=== PATIENT | male | born 1985 | race Two or more races ===

== ENCOUNTER 2018-06-24 20:55 | Emergency (ER) | payer BC ==
[~2018-06-24] VITALS: Ht 172.7 cm; Wt 70.5 kg
--- NOTE | 2018-06-24 21:20 | NUR ---
Dr. Lucia at bedside to evaluate pt, using full time staff interpreter.
[2018-06-24 21:46] LABS: BASOPHILS # (AUTO) 0.03 x10^3/uL (0-0.1); BASOPHILS % (AUTO) 1 % (0-1); EOSINOPHILS # (AUTO) 0.06 x10^3/uL (0-0.4); EOSINOPHILS % (AUTO) 1 % (1-7); LYMPHOCYTES # (AUTO) 1.12 x10^3/uL (1-3.4); LYMPHOCYTES % (AUTO) 15 % (22-44); MD NO; MEAN CORPUSCULAR HEMOGLOBIN 30.8 pg (27.5-34.5); MEAN CORPUSCULAR HGB CONC 33.9 g/dL (33.2-36.2); MEAN CORPUSCULAR VOLUME 90.8 fL (81-97); MEAN PLATELET VOLUME 9.5 fL (7.4-10.4); MONOCYTES # (AUTO) 0.36 x10^3/uL (0.2-0.8); MONOCYTES % (AUTO) 5 % (2-9); NEUTROPHILS # (AUTO) 5.78 x10^3/uL (1.8-6.8); NEUTROPHILS % (AUTO) 79 % (42-75); PLATELET COUNT 228 x10^3/uL (130-400); RED BLOOD COUNT 4.75 x10^6/uL (4.38-5.82); RED CELL DISTRIBUTION WIDTH 12.8 % (9.4-14.8)
[2018-06-24 21:58] LABS: ANION GAP 6 mmol/L (5-15); CALCIUM 8.9 mg/dL (8.5-10.1); CHLORIDE 107 mmol/L (98-107); CREATININE 1.12 mg/dL (0.7-1.3)
[2018-06-24 22:02] LABS: TROPONIN I < 0.015 ng/mL (0.000-0.045)
--- NOTE | 2018-06-24 22:17 | NUR ---
Jennifer DUMONT, at bedside to evaluate pt.
--- NOTE | 2018-06-24 22:25 | NUR ---
Dr. Lucia at bedside, with revenue audit clerk, to discuss ED findings and d/c information.
[2018-06-24 22:43] VITALS: BP 126/70
--- NOTE | 2018-06-24 22:44 | NUR ---
Patient/Caregiver given discharge instructions and they have confirmed that they understand the instructions. Patient ambulatory with steady gait.
== END 2018-06-24 22:45 | disposition home or self-care (01) ==
LOC: ED 22:39
DX: R07.89 Other chest pain (principal); R00.2 Palpitations; Z95.0 Presence of cardiac pacemaker
CPT/HCPCS: 36415; 71045; 80048; 82040; 83880; 84484; 85025; 93005; 99284

== ENCOUNTER 2018-07-04 20:51 | Emergency (ER) | payer BC ==
[~2018-07-04] VITALS: Ht 172.7 cm; Wt 59.7 kg
[2018-07-04 20:53] VITALS: BP 126/87
--- NOTE | 2018-07-04 21:05 | NUR ---
L EAR PAIN-ONSET X 2-3 DAYS.
[2018-07-04] MEDS ORDERED: HYDROcodone/APAP 10/325 MG TABLET ONE (21:10)
[2018-07-04] MEDS ORDERED: HYDROcodone/APAP 10/325 MG TABLET PO ONE (21:30)
--- NOTE | 2018-07-04 21:38 | NUR ---
THE [employer] SHUTTLE DRIVER NOT AVAILABLE AT THIS TIME THEY WILL CALL WHEN AVAILABLE
--- NOTE | 2018-07-04 22:05 | NUR ---
LABEL CUTTER ON VIDEO MD AT BEDSIDE
--- NOTE | 2018-07-04 22:27 | NUR ---
Patient/Caregiver given discharge instructions and they have confirmed that they understand the instructions. Patient ambulatory with steady gait.
== END 2018-07-04 22:28 | disposition home or self-care (01) ==
LOC: ED 21:57
DX: H66.001 Acute suppurative otitis media without spontaneous rupture of ear drum, right ear (principal)
CPT/HCPCS: 99283